=== PATIENT | male | born 1955 | race Caucasian/White ===

== ENCOUNTER 2024-10-03 08:46 | Outpatient (CLI) | payer MEDICARE, SELFPAY ==
--- NOTE | 2024-10-03 10:09 | US_ITS ---
PROCEDURE: ABD LIMITED W/ ELASTOGRAPHY 10/03/2024 REASON FOR EXAM: [facility] TECHNIQUE: Complete abdominal ultrasound love-scale images with color doppler. PATIENT PREPARATION: Per protocol FINDINGS: Liver: Measures 19.4 cm. Echogenicity is increased consistent with fatty infiltration. Echotexture is otherwise within normal limits. No focal hepatic lesions identified. Portal vein flow is hepatopetal. Bile Ducts: Not dilated. Hepatic Color Flow: Demonstrated. Gallbladder: Measures 6.35 cm in length with wall thickness of 0.24 cm. Multiple echogenic foci consistent with stones and gravel are noted. No pericholecystic fluid. Negative Turcios's sign. Common bile duct measures 3.3 mm. Pancreas: Visualized and appears within normal limits. No ductal dilatation. Right Kidney: Measures 11.81 x 6.13 x 5.39 cm. Cortical thickness measures 1.25 cm. Echotexture and echogenicity are within normal limits. No evidence of calculi, masses, or hydronephrosis. Elastography ([facility]): Site A: Median stiffness = 9.7 kPa / 1.77 m/s Site B: Median stiffness = 14.2 kPa / 2.17 m/s Site C: Median stiffness = 18.0 kPa / 2.44 m/s Site D: Median stiffness = 13.7 kPa / 2.12 m/s Average Median Stiffness: 15.3 kPa / 2.24 m/s METAVIR Score: F3-F4 (Advanced fibrosis to cirrhosis) US/ABD Limited w/ Elastography IMPRESSION: *Echogenic liver consistent with hepatic steatosis. *Elastography findings consistent with advanced hepatic fibrosis (F3-F4). *Multiple gallstones/gravel identified without cholecystitis. *No evidence of hydronephrosis or renal mass. Reading [facility]
[2024-10-03 10:10] LABS: Absolute Lymphocyte Count 0.99 X10^3/uL (0.83-4.51); Absolute Neutrophil Count 2.3 X10^3/uL (2.0-7.7); Basophil# 0.03 X10^3/uL; Basophil% 0.8 % (0-1); Eosinophil# 0.12 X10^3/uL; Hematocrit 46.1 % (40-54); Hemoglobin 15.9 g/dL (13.0-16.5); Lymphocyte # 0.99 X10^3/ul (0.83-4.51); Lymphocyte % 25.1 % (19-41); Mean Corp Hgb Conc 34.5 g/dL (32-36); Mean Corpuscular Hgb 32.8 pg (27.0-32.0); Mean Corpuscular Volume 95.1 fL (80-94); Mean Platelet Vol. 10.8 fl (6.2-12.0); Monocyte# 0.46 X10^3/uL; Monocyte% 11.6 % (0-10); NRBC Flagged by Analyzer 0 % (0-5); Neutrophil # 2.34 X10^3/uL (2.7-7.7); Neutrophil % 59.2 % (47-70); Platelet Count 110 K/mm3 (150-450); RBC Distribution Width CV 11.9 % (11.6-14.6); RBC Distribution Width SD 41.3 fl (35.1-43.9); Red Blood Count 4.85 M/mm3 (4.6-6.2)
[2024-10-03 10:28] LABS: International Normalized Ratio 1.1; Prothrombin Time (Protime)PT. 14.4 SECONDS (11.7-14.9)
[2024-10-03 13:27] LABS: ALB/GLOB Ratio 1.3 RATIO (0.9-2.4); AST(SGOT) 43 U/L (<=37); Alanine Aminotransfer ALT/SGPT 42 U/L (<=46); Albumin, Serum 4.6 g/dL (3.4-4.8); Alkaline Phosphatase 64 U/L (40-129); Anion Gap 15 (5-15); BUN 18 mg/dL (4-19); BUN/Creat Ratio 16.7 RATIO (10-20); Bilirubin, Direct 0.43 mg/dL (0.00-0.30); Calcium,Total 9.8 mg/dL (7.6-11.0); Carbon Dioxide 26.2 mmol/L (21.0-32.0); Chloride 98 mmol/L (98-108); Cholesterol 148 mg/dL (<=200); EST Glomerular Filtration Rate 74 (>60); Ferritin 1137 ng/mL (37-417); Globulin 3.5 g/dL (2.2-4.2); Glucose 131 mg/dL (70-99); HIV Nonreactive (Nonreactive); High Density Lipoprotein 59 mg/dL; Low Density Lipoprotein Calc. 71 mg/dL; Potassium 3.5 mmol/L (3.3-5.1); Protein, Total 8.2 g/dL (5.9-8.4); Sodium Level 139 mmol/L (133-145); Total Bilirubin 0.97 mg/dL (0.00-1.30); Triglycerides 91 mg/dL; Very Low Density Lipoprotein 18 mg/dL (5-40); cholesterol:hdl ratio screen 2.52
[2024-10-03 14:02] LABS: Iron Binding Capacity,Total 364 ug/dL (250-450)
[2024-10-03 14:05] LABS: CRP < 3.00 mg/L (0.0-3.0); Iron 142 ug/dL (65-175); Iron Binding Capacity,Unsat 222 ug/dL (228-428)
[2024-10-04 16:09] LABS: ANTINUCLEAR ANTIBODIES DIRECT Negative (Negative); Anti-Mitochondrial AB <20.0 Units (0.0-20.0)
[2024-10-05 16:09] LABS: Anti-Smooth Muscle ABS 8 Units (0-19); Ceruloplasmin 19.1 mg/dL (16.0-31.0); HEPATITIS B SURFACE AG Negative (Negative); Hep C Antibodies Non Reactive (Non Reactive); Hepatitis A IgM Antibody Negative (Negative); Hepatitis B Core AB IgM Negative (Negative); Immunoglobulin A 209 mg/dL (61-437); Immunoglobulin E 4 IU/mL (6-495); Immunoglobulin G 1502 mg/dL (603-1613); Immunoglobulin M 121 mg/dL (20-172)
== END 2024-10-03 23:59 | disposition home or self-care (01) ==
PROVIDERS: PCP Internal Medicine; Referring Provider Internal Medicine; Visit Provider Internal Medicine
DX: R74.8 Abnormal levels of other serum enzymes (principal); K74.60 Unspecified cirrhosis of liver; R73.01 Impaired fasting glucose; R79.89 Other specified abnormal findings of blood chemistry; E78.5 Hyperlipidemia, unspecified; K76.0 Fatty (change of) liver, not elsewhere classified; R63.4 Abnormal weight loss; M81.0 Age-related osteoporosis without current pathological fracture
CPT/HCPCS: 76705; 76981; 80053; 80061; 80074; 82248; 82306; 82390; 82728; 82784; 82785; 83516; 83540; 83550; 84439; 84443; 85025; 85610; 86038; 86140; 86225; 86235; 86703

== ENCOUNTER 2024-10-14 08:14 | Outpatient (CLI) | payer MEDICARE, SELFPAY | END 2024-10-14 23:59 | disposition home or self-care (01) | PROVIDERS: PCP Internal Medicine; Referring Provider Internal Medicine; Visit Provider Internal Medicine | DX: D69.6 Thrombocytopenia, unspecified (principal) | CPT/HCPCS: 36415 ==

== ENCOUNTER → 2025-01-24 | Outpatient (CLI) | payer MEDICARE, SELFPAY ==
[2025-01-24 16:07] LABS: Hematocrit 43.5 % (40-54); Hemoglobin 15.4 g/dL (13.0-16.5); Immature Granulocytes Count 0.020 X10^3/uL (0.0-0.0); Mean Corp Hgb Conc 35.4 g/dL (32-36); Mean Corpuscular Volume 92.9 fL (80-94); Mean Platelet Vol. 10.5 fl (6.2-12.0); NRBC Flagged by Analyzer 0 % (0-5); POSITIVE COUNT YES; Platelet Count 114 K/mm3 (150-450); RBC Distribution Width CV 11.8 % (11.6-14.6); RBC Distribution Width SD 40.3 fl (35.1-43.9); Red Blood Count 4.68 M/mm3 (4.6-6.2); White Blood Count 6.1 K/mm3 (4.4-11.0)
[2025-01-24 16:38] LABS: AST(SGOT) 37 U/L (<=37); Alanine Aminotransfer ALT/SGPT 34 U/L (<=46); Albumin, Serum 4.4 g/dL (3.4-4.8); Alkaline Phosphatase 54 U/L (40-129); Anion Gap 12 (5-15); BUN 18 mg/dL (4-19); BUN/Creat Ratio 18.0 RATIO (10-20); Calcium,Total 9.5 mg/dL (7.6-11.0); Carbon Dioxide 27.2 mmol/L (21.0-32.0); Chloride 100 mmol/L (98-108); Cholesterol 153 mg/dL (<=200); Globulin 3.2 g/dL (2.2-4.2); Glucose 104 mg/dL (70-99); Hepatitis C Antibody Nonreactive (Nonreactive); Low Density Lipoprotein Calc. 79 mg/dL; Potassium 3.6 mmol/L (3.3-5.1); Triglycerides 88 mg/dL; Very Low Density Lipoprotein 18 mg/dL (5-40); cholesterol:hdl ratio screen 2.69
[2025-01-24 16:47] LABS: PSA,Total - Annual Screen 0.81 ng/mL (0.02-4.00); Vitamin D,25 Hydroxy 54.3 ng/mL (30-100)
[2025-01-24 18:20] LABS: Differential Indicated SCAN CRITERIA MET
[2025-01-24 18:21] LABS: Differential Comment SCANNED
== END | disposition home or self-care (01) ==
LOC: POLAB3 15:24
PROVIDERS: PCP Family Medicine Geriatric Medicine; Visit Provider Family Medicine Geriatric Medicine
DX: Z12.5 Encounter for screening for malignant neoplasm of prostate (principal); Z13.89 Encounter for screening for other disorder; E03.9 Hypothyroidism, unspecified; I10 Essential (primary) hypertension; E78.5 Hyperlipidemia, unspecified; E55.9 Vitamin D deficiency, unspecified
CPT/HCPCS: 36415; 80053; 80061; 82306; 84153; 84443; 85025; 86803; G0103